=== PATIENT | female | born 1990 | race Caucasian/White ===

== ENCOUNTER 2024-05-24 09:29 | Emergency (ER) | payer MEDICAID, SELFPAY ==
--- NOTE | 2024-05-24 09:38 | ED_ITS ---
HPI - Overdose General Chief Complaint: General Medical Stated Complaint: ?ALLER RXN OR EXTRA ABX,NAUSEA,DIZZY,ARMS TINGLY Time Seen by Provider: 05/24/24 09:36 Source: patient, EMS and old records reviewed Mode of arrival: EMS Limitations: no limitations History of Present Illness ED Provider: TIARRA JONES Narrative: 33 yo female with PMH of ETOH use, pneumonia currently on vantin, depression here with c/o not feeling well and accidentally took an extra dose of her medications. She reports at 5am she took her usual 0.1 clonidine, trazodone 100mg, propanolol 40mg - she went to bed then think she got up again and took 1 more dose of each. She states she has no SI it was an error due to being tired. She feels dizzy when she stands. No other ingestion. She might have taken extra dose of vantin as well. complaint: accidental overdose Onset (ago): hour(s) (7am) Context: Accidental Overdose: medication error Associated symptoms: nausea/vomiting and tinnitus (dizzy) Treatments Prior to Arrival: IV fluids and other (zofran) Related Data Allergies Allergy/AdvReac Type Severity Reaction Status Date / Time amoxicillin Allergy Intermediate Rash Verified 05/24/24 09:55 nitrofurantoin Allergy Intermediate Rash Verified 05/24/24 09:55 [From Macrobid] Review of Systems 2 Review of Systems: Constitutional : No Fever, No Chills, No Fatigue ENT/Mouth : No sore throat, No Rhinorrhea Eyes: No Eye Pain, No Swelling, No Redness Cardiovascular : No Chest Pain, No SOB, No Dyspnea on Exertion Respiratory : No Cough, No Sputum Gastrointestinal : pos Nausea, No Vomiting, No Diarrhea, No abdominal Pain Genitourinary : No Dysuria, No Urinary Frequency, No Hematuria, Musculoskeletal : No joint pain, No Myalgias, No Joint Swelling Skin : No Skin Lesions, No rash Neuro : No Weakness, No Numbness, pos Dizziness, positive Headache All other systems reviewed and are negative [facility] Past Medical History Attestation statement: The following information was validated with the patient. Source: old records reviewed Medical History Anxiety Depression Social History Social History (Updated 05/24/24 @ 10:00 by Samantha Land DO) Alcohol intake: current Alcohol intake frequency: former alcohol drinker Alcohol type: beer and hard liquor Patient Tobacco Use Status: Tobacco use Unknown Advance Directives: No Advance Directives Information Provided: Yes Do you have a plan to hurt others: No Plan Physical Exam 2 Vital Signs: Vital Signs: Last Vital Signs Temp 98.6 F 05/24/24 09:52 Pulse 83 05/24/24 13:54 Resp 16 05/24/24 13:54 BP 143/106 H 05/24/24 13:54 Pulse Ox 94 05/24/24 13:54 O2 Del Method Room Air 05/24/24 13:54 O2 Flow Rate 2 05/24/24 11:16 BMI result Body Mass Index 17.4 Appearance: Alert. Oriented X3. No acute distress. Eyes: Pupils equal, round and reactive to light. no nystagmus ENT: Pharynx normal. Neck: Normal inspection. Neck supple. CVS: Normal heart rate and rhythm. Pulses normal. Respiratory: No respiratory distress. Breath sounds normal. Abdomen: Soft and nontender. Skin: Skin warm and dry. Normal skin color. Normal skin turgor. Extremities: No lower extremity edema. No calf ttp Neuro: Oriented X 3. No motor deficit. No sensory deficit. CN2-12 intact no clonus Medications Administered Discontinued Medications Generic Name Dose Route Start Last Admin Trade Name Fabianq PRN Reason Stop Dose Admin Diazepam 2.5 mg 05/24/24 10:49 05/24/24 11:17 Diazepam 10 Mg/2 Ml Cartridge IVPUSH 05/24/24 10:50 2.5 mg STAT STA Administration Famotidine 20 mg 05/24/24 10:49 05/24/24 11:17 Famotidine/Pf 20 Mg/2 Ml Vial IVPUSH 05/24/24 10:50 20 mg ONCE ONE Administration Lactated Ringer's 1,000 mls @ 999 mls/hr 05/24/24 09:51 05/24/24 10:40 Lr IV 05/24/24 10:51 999 mls/hr .Q1H1M ONE Administration Medical Decision Making Medical Decision Making [facility] Narrative: 33 yo female with PMH of ETOH use, pneumonia currently on vantin, depression here with c/o accidental overdose of her medications she denies SI/HI at this time will obtain labs, EKG, tele monitor for 4 to 5 hours, IVF and repeat reassessments. Hypoxia after valium, vital signs stable without hypotension or bradycardia. Tolerating PO. Non toxic appearing. Will obtain follow up EKG to monitor for stable qTC. Differential Diagnosis Differential Diagnoses: The differential diagnosis associated with the presentation includes accidental overdose Admission/Observation Consideration of admission/observation: Escalation of care including admission/observation considered physician observation started at 1126am pending observation for overdose observed for 5 hours at this time she does not meet inpatient level of care no signs of issue with overdose BP and HR stable 05/24/24 TIARRA 3pm Lab Data [facility] Lab Attestation statement: I reviewed the patient's lab results. 05/24/24 10:25 05/24/24 10:26 Labs: Lab Results 05/24/24 05/24/24 05/24/24 Range/Units 10: 10: 10:30 WBC 5.1 (4.8-10.8) X10*3/uL RBC 3.97 L (4.20-5.50) X10*6/uL Hgb 13.0 (12.0-16.0) g/dl Hct 39.7 (37.0-47.0) % MCV 100.0 H (80.0-98.0) fL MCH 32.7 (27.0-33.0) pg MCHC 32.7 (31.0-35.0) g/dl RDW 14.0 (11.0-16.0) % Plt Count 219 (160-400) X10*3/uL MPV 9.1 L (9.4-12.3) fL Immature Gran % (Auto) 1.0 H (0.0-0.4) % Neut % (Auto) 26.7 L (45-73) % Lymph % (Auto) 51.1 H (20-40) % Cobb % (Auto) 18.2 H (2-11) % Eos % (Auto) 2.0 (0-4) % Baso % (Auto) 1.0 (0-2) % Lymph # (Auto) 2.6 (1.2-4.9) X10*3/uL Cobb # (Auto) 0.9 (0.1-1.2) X10*3/uL Eos # (Auto) 0.1 (0.0-0.4) X10*3/uL Baso # (Auto) 0.1 (0.0-0.2) X10*3/uL Abs Immat Gran (auto) 0.05 H (0.00-0.03) X10*3/uL Absolute Neuts (auto) 1.4 L (2.0-8.3) x10*3/uL Absolute Nucleated RBC 0.000 (0.0-0.012) X10*3/uL Nucleated RBC % (auto) 0.0 (0.0-0.2) /100WBC VBG pH 7.29 L (7.32-7.43) VBG pCO2 56 mmHg VBG pO2 35 mmHg VBG HCO3 27 H (22-26) mmol/L VBG O2 Saturation 46.0 % VBG Base Excess 0.3 mmol/L Sodium 142 (135-145) mmol/L Potassium 3.6 (3.3-5.1) mmol/L Chloride 109 H (96-108) mmol/L Carbon Dioxide 26 (22-29) mmol/L Anion Gap 11 L (12-20) BUN 3 L (9-16) mg/dL Creatinine 0.55 (0.5-1.4) mg/dL Estim Creat Clear Calc 98.9 Estimated GFR > 60 Random Glucose 81 (60-115) mg/dL Calcium 8.1 L (8.4-10.2) mg/dL Magnesium 1.6 (1.6-2.6) mg/dL Total Bilirubin 0.1 (0.0-1.0) mg/dL Direct Bilirubin < 0.2 (0.0-0.5) mg/dL AST 37 H (5-31) U/L ALT 18 (0-31) U/L Alkaline Phosphatase 70 (39-117) U/L Total Protein 6.2 L (6.5-8.0) g/dL Albumin 3.3 L (3.5-5.0) g/dL Beta HCG, Quant < 2 mIU/mL Salicylates < 5.0 L (15-30) mg/dL Urine Opiates Screen (Not Detect) Ur Buprenorphine Scrn (Not Detect) ng/mL Ur Oxycodone Screen (Not Detect) ng/mL Urine Methadone Screen (Not Detect) ng/mL Urine Fentanyl Screen (Not Detect) Acetaminophen < 3 (<30) mcg/mL Ur Barbiturates Screen (Not Detect) Ur Phencyclidine Scrn (Not Detect) Ur Amphetamines Screen (Not Detect) U Benzodiazepines Scrn (Not Detect) Urine Cocaine Screen (Not Detect) U Marijuana (THC) Screen (Not Detect) Ethyl Alcohol 83 mg/dL 05/24/24 Range/Units 10:43 WBC (4.8-10.8) X10*3/uL RBC (4.20-5.50) X10*6/uL Hgb (12.0-16.0) g/dl Hct (37.0-47.0) % MCV (80.0-98.0) fL MCH (27.0-33.0) pg MCHC (31.0-35.0) g/dl RDW (11.0-16.0) % Plt Count (160-400) X10*3/uL MPV (9.4-12.3) fL Immature Gran % (Auto) (0.0-0.4) % Neut % (Auto) (45-73) % Lymph % (Auto) (20-40) % Cobb % (Auto) (2-11) % Eos % (Auto) (0-4) % Baso % (Auto) (0-2) % Lymph # (Auto) (1.2-4.9) X10*3/uL Cobb # (Auto) (0.1-1.2) X10*3/uL Eos # (Auto) (0.0-0.4) X10*3/uL Baso # (Auto) (0.0-0.2) X10*3/uL Abs Immat Gran (auto) (0.00-0.03) X10*3/uL Absolute Neuts (auto) (2.0-8.3) x10*3/uL Absolute Nucleated RBC (0.0-0.012) X10*3/uL Nucleated RBC % (auto) (0.0-0.2) /100WBC VBG pH (7.32-7.43) VBG pCO2 mmHg VBG pO2 mmHg VBG HCO3 (22-26) mmol/L VBG O2 Saturation % VBG Base Excess mmol/L Sodium (135-145) mmol/L Potassium (3.3-5.1) mmol/L Chloride (96-108) mmol/L Carbon Dioxide (22-29) mmol/L Anion Gap (12-20) BUN (9-16) mg/dL Creatinine (0.5-1.4) mg/dL Estim Creat Clear Calc Estimated GFR Random Glucose (60-115) mg/dL Calcium (8.4-10.2) mg/dL Magnesium (1.6-2.6) mg/dL Total Bilirubin (0.0-1.0) mg/dL Direct Bilirubin (0.0-0.5) mg/dL AST (5-31) U/L ALT (0-31) U/L Alkaline Phosphatase (39-117) U/L Total Protein (6.5-8.0) g/dL Albumin (3.5-5.0) g/dL Beta HCG, Quant mIU/mL Salicylates (15-30) mg/dL Urine Opiates Screen Not Detected (Not Detect) Ur Buprenorphine Scrn Not Detected (Not Detect) ng/mL Ur Oxycodone Screen Not Detected (Not Detect) ng/mL Urine Methadone Screen Not Detected (Not Detect) ng/mL Urine Fentanyl Screen Not Detected (Not Detect) Acetaminophen (<30) mcg/mL Ur Barbiturates Screen Not Detected (Not Detect) Ur Phencyclidine Scrn Not Detected (Not Detect) Ur Amphetamines Screen Not Detected (Not Detect) U Benzodiazepines Scrn Not Detected (Not Detect) Urine Cocaine Screen Not Detected (Not Detect) U Marijuana (THC) Screen POSITIVE H (Not Detect) Ethyl Alcohol mg/dL Independent Interpretation I performed an independent interpretation of an: EKG Interpretation: Rate: 74 Rhythm:NSR Beyer: normal Normal P waves. Normal NANY. Normal QRS complex. ST T wave : inverted t wave V1, no JHONATAN qTC: 439 prior studies: no acute ischemia The study has been interpreted contemporaneously by me. EKG #2 Rate: 79 Rhythm: NSR Beyer: normal Normal P waves. Normal NANY. Normal QRS complex. ST T wave : inverted V1, no JHONATAN qTC: 435 prior studies: no acute ischemia The study has been interpreted contemporaneously by me. . Independent Historian Clinical information obtained from an independent historian. History obtained from or confirmed by: EMS External Record Review External record reviewed: Outpatient record Discharge Plan Discharge Clinical Impression: Overdose Qualifiers: Encounter type: initial encounter Injury intent: accidental or unintentional Q ualified Code(s): T50.901A - Poisoning by unspecified drugs, medicaments and biological substances, accidental (unintentional), initial encounter Patient Disposition: Home, Self-Care Instructions: Adult Overdose (ED) Additional Instructions: do not take your medications tonight including trazodone and clonidine return for worsening symptoms dizziness, low blood pressure top number below 90, fainting, HR below 60 or any other concerns rest and stay hydrated hold your next dose of antibiotic can resume all medications normal tomorrow Print Language: Mauritanian
[2024-05-24 09:39] VITALS: BP 133/86; PULSE 118; O2SAT 99
[2024-05-24 09:52] VITALS: BP 149/99; PULSE 95; RESP 12; TEMP 37; O2SAT 94; BMI 17.4
--- NOTE | 2024-05-24 09:52 | ECG_ITS ---
Test Reason : OVERDOSE Blood Pressure : */* mmHG Vent. Rate : 74 BPM Atrial Rate : 74 BPM P-R Int : 108 ms QRS Dur : 68 ms QT Int : 396 ms P-R-T Axes : 53 79 63 degrees QTcB Int : 439 ms Sinus rhythm with short AR Otherwise normal ECG No previous ECGs available Referred By: Samantha Land Electronically Signed By: DORI STEPHENS MD
[2024-05-24 10:29] LABS: MANUAL DIFF FLAG NO
[2024-05-24 10:35] LABS: VBG Base Excess 0.3 mmol/L; VBG HCO3 27 mmol/L (22-26); VBG pCO2 56 mmHg; VBG pH 7.29 (7.32-7.43); VBG pO2 35 mmHg
[2024-05-24 10:37] LABS: Venous Blood Gas Refer to POC result
[2024-05-24] MEDS: Lactated Ringers 1,000 ML 999 ML IV (10:40)
[2024-05-24 10:45] LABS: Ethanol 83 mg/dL
[2024-05-24 10:45] LABS: Basophils Absolute Auto 0.1 X10*3/uL (0.0-0.2); Eosinophils Absolute Auto 0.1 X10*3/uL (0.0-0.4); Hematocrit 39.7 % (37.0-47.0); Imm Gran Abs Auto 0.05 X10*3/uL (0.00-0.03); Lymphocytes Absolute Auto 2.6 X10*3/uL (1.2-4.9); Lymphocytes Percent Auto 51.1 % (20-40); Mean Corpuscular HGB Conc 32.7 g/dl (31.0-35.0); Mean Corpuscular Hemoglobin 32.7 pg (27.0-33.0); Mean Platelet Volume 9.1 fL (9.4-12.3); Monocytes Absolute Auto 0.9 X10*3/uL (0.1-1.2); Monocytes Percent Auto 18.2 % (2-11); Neutrophils Absolute Auto 1.4 x10*3/uL (2.0-8.3); Neutrophils Percent Auto 26.7 % (45-73); Platelet Count 219 X10*3/uL (160-400); Red Blood Count 3.97 X10*6/uL (4.20-5.50); White Blood Count 5.1 X10*3/uL (4.8-10.8)
[2024-05-24 10:46] LABS: Acetaminophen LAB < 3 mcg/mL (<30); Salicylate < 5.0 mg/dL (15-30)
[2024-05-24 10:53] LABS: Alanine Aminotransferase 18 U/L (0-31); Albumin Level 3.3 g/dL (3.5-5.0); Alkaline Phosphatase 70 U/L (39-117); Anion Gap 11 (12-20); Aspartate Amino Transferase 37 U/L (5-31); Bilirubin Direct < 0.2 mg/dL (0.0-0.5); Bilirubin Total 0.1 mg/dL (0.0-1.0); Blood Urea Nitrogen 3 mg/dL (9-16); Calcium 8.1 mg/dL (8.4-10.2); Carbon Dioxide 26 mmol/L (22-29); Chloride 109 mmol/L (96-108); Creatinine Clr Calc Pharmacy 98.9; Estimated Glomerular Filt Rate > 60; Glucose Random 81 mg/dL (60-115); Magnesium 1.6 mg/dL (1.6-2.6); Potassium 3.6 mmol/L (3.3-5.1); Sodium 142 mmol/L (135-145); Total Protein 6.2 g/dL (6.5-8.0)
[2024-05-24 10:57] LABS: HCG Quantitative < 2 mIU/mL
[2024-05-24 11:15] VITALS: BP 134/99; PULSE 80; RESP 16; O2SAT 87
[2024-05-24 11:16] VITALS: O2SAT 95
[2024-05-24] MEDS: diazePAM 10 MG/2 ML CARTRIDGE 2.5 MG IVPUSH (11:17)
[2024-05-24] MEDS: Famotidine/PF 20 MG/2 ML VIAL IVPUSH (11:17)
[2024-05-24 11:21] LABS: Amphetamine Screen Urine Not Detected (Not Detect); Barbiturates, Urine Not Detected (Not Detect); Benzodiazepines Screen Urine Not Detected (Not Detect); Buprenorphine Scr Not Detected (Not Detect); Cannabinoid Screen Urine POSITIVE (Not Detect); Cocaine Screen Urine Not Detected (Not Detect); Fentanyl, urine Not Detected (Not Detect); Methadone Screen, Urine Not Detected (Not Detect); Opiate Screen Urine Not Detected (Not Detect); Oxycodone Screen Urine Not Detected (Not Detect); Phencyclidine Screen Urine Not Detected (Not Detect)
[2024-05-24 13:54] VITALS: BP 143/106; PULSE 83; RESP 16; O2SAT 94
--- NOTE | 2024-05-24 14:00 | ECG_ITS ---
Test Reason : OVERDOSE Blood Pressure : */* mmHG Vent. Rate : 79 BPM Atrial Rate : 79 BPM P-R Int : 100 ms QRS Dur : 72 ms QT Int : 380 ms P-R-T Axes : 56 78 57 degrees QTcB Int : 435 ms Sinus rhythm with sinus arrhythmia with short IA Otherwise normal ECG When compared with ECG of 24-May-2024 10:09, No significant change was found Referred By: Samantha Land Electronically Signed By: DORI STEPHENS MD
[2024-05-24 15:12] VITALS: BP 148/103; PULSE 88; RESP 16; TEMP 37.1; O2SAT 97
== END 2024-05-24 15:20 | disposition home or self-care (01) ==
PROVIDERS: Emergency Provider Emergency Medicine; PCP Internal Medicine
DX: T46.5X1A Poisoning by other antihypertensive drugs, accidental (unintentional), initial encounter (principal); T43.211A Poisoning by selective serotonin and norepinephrine reuptake inhibitors, accidental (unintentional), initial encounter; T51.3X1A Toxic effect of fusel oil, accidental (unintentional), initial encounter; R42 Dizziness and giddiness; Y92.003 Bedroom of unspecified non-institutional (private) residence as the place of occurrence of the external cause
CPT/HCPCS: 36415; 80048; 80076; 80143; 80179; 80307; 82803; 83735; 84702; 85025; 93005; 96374; 96375; 99284; J3360; J7120

== ENCOUNTER → 2024-05-24 09:52 | Outpatient (BNV) | payer MEDICAID, SELFPAY | PROVIDERS: Emergency Provider Emergency Medicine; PCP Internal Medicine; Visit Provider Internal Medicine Cardiovascular Disease | DX: T50.901A Poisoning by unspecified drugs, medicaments and biological substances, accidental (unintentional), initial encounter (principal) | CPT/HCPCS: 93010 ==

== ENCOUNTER 2024-09-15 00:41 | Inpatient (IN) | payer MEDICAID, SELFPAY ==
[2024-09-15] VITALS (10 sets, daily range): BP systolic 110–154; BP diastolic 72–117; PULSE 87–126; RESP 12–26; TEMP 36.7–37.2; O2SAT 90–97; BMI 18.2
--- NOTE | 2024-09-15 | ECG_ITS ---
Test Reason : TACHY, ALCOHOL WITHDRAWL Blood Pressure : */* mmHG Vent. Rate : 115 BPM Atrial Rate : 115 BPM P-R Int : 128 ms QRS Dur : 76 ms QT Int : 340 ms P-R-T Axes : 81 85 54 degrees QTcB Int : 470 ms Sinus tachycardia Otherwise normal ECG When compared with ECG of 24-May-2024 14:25, T wave amplitude has decreased in Lateral leads Referred By: Generic ED Physician Electronically Signed By: RAMON RYDER
--- NOTE | ~2024-09-15 | CT_ITS ---
CLINICAL HISTORY: Diffuse Abd Pain Tenderness; N V CT abdomen and pelvis with contrast Comparison: None provided Findings: The lung bases are clear. The appearance of the liver suggests fatty infiltration. Otherwise unremarkable gallbladder and solid organs. No urolithiasis. No bowel obstruction, pneumoperitoneum, or pneumatosis. Pelvic contents unremarkable. Normal appendix. The bones are intact. IMPRESSION: Hepatic steatosis. This document has been electronically signed by: Lazarus Hall MD on 09/15/2024 06:44:32
--- NOTE | ~2024-09-15 | CT_ITS ---
CLINICAL HISTORY: Fall; Head Strike; ? Seizure CT head without contrast Comparison: None provided Findings: No intra-axial mass, midline shift, hydrocephalus, or acute hemorrhage. No significant atrophy-like change or white matter disease. There is no sinus or mastoid fluid. The orbits are within normal limits. There is no acute fracture. IMPRESSION: 1. No acute intracranial findings. This document has been electronically signed by: Thor Wells MD on 09/15/2024 04:55:45
--- OUTSIDE RECORDS SUMMARY | 2024-09-15 01:16 | XMS_ITS ---
Author Name [facility] Organization Unknown Encounters Encounter Type Encounter Reason Primary Diagnosis Location Date Ambulatory [facility] 08/17/2024 Care Team Organization Name Specialty Phone Email Start Date End [facility] 08/17
[2024-09-15 01:33] LABS: MANUAL DIFF FLAG NO
[2024-09-15 01:36] LABS: Hematocrit 45.7 % (37.0-47.0); Hemoglobin 16.7 g/dl (12.0-16.0); Imm Gran Abs Auto 0.01 X10*3/uL (0.00-0.03); Imm Gran Pct Auto 0.2 % (0.0-0.4); Lymphocytes Absolute Auto 1.9 X10*3/uL (1.2-4.9); Mean Corpuscular HGB Conc 36.5 g/dl (31.0-35.0); Mean Corpuscular Hemoglobin 34.2 pg (27.0-33.0); Mean Corpuscular Volume 93.6 fL (80.0-98.0); NRBC Abs Auto 0.000 X10*3/uL (0.0-0.012); NRBC Pct Auto 0.0 /100WBC (0.0-0.2); Platelet Count 137 X10*3/uL (160-400); Red Blood Count 4.88 X10*6/uL (4.20-5.50); White Blood Count 4.7 X10*3/uL (4.8-10.8)
--- NOTE | 2024-09-15 01:53 | ED_ITS ---
HPI - General Adult General Chief complaint: General Medical Stated complaint: ABD Pain Time Seen by Provider: 09/15/24 01:52 Source: patient and EMS Mode of arrival: EMS Limitations: no limitations History of Present Illness ED Provider: Hipolito VAIL HPI narrative: The patient is a 34-year-old female with a history of depression, anxiety, alcohol dependency, tobacco dependency, and marijuana use, self reporting a history of cirrhosis, presenting to the ED for evaluation of multiple complaints. Patient reports she has a history of previous withdrawal seizures, denies history of epilepsy or taking antiepileptics. Patient reports she has been experiencing generalized abdominal pain for the past 5 days, has been able to tolerate any p.o. solids but has been able to tolerate water and roughly 12 40 oz beers daily. The patient reports tonight she woke up on the ground, patient lives with her parents but parents were not home at the time of her presumed syncopal episode. The patient states she believes she likely had a grand mal seizure as a result of withdrawal, states she did not drank any alcohol since 08:00 on 09/14. The patient denies associated nausea with dry heaving, as well as chronic cough productive of white foamy sputum, denies hemoptysis or hematemesis. The patient reports she has been having difficulty urinating due to poor fluid intake, reports history of multiple previous UTIs. Patient reports she has also been experiencing diarrhea but denies hematochezia or melena. The patient reports associated headache, denies focal neurological deficit. The patient reports she has been compliant with her psychiatric medications. The patient admits to alcohol and marijuana use today, denies use of other recreational drugs. Related Data Allergies Allergy/AdvReac Type Severity Reaction Status Date / Time amoxicillin Allergy Intermediate Rash Verified 09/15/24 01:01 nitrofurantoin (From Allergy Intermediate Rash Verified 09/15/24 01:01 Macrobid) Review of Systems 2 Review of Systems: Yes all other systems are reviewed and are negative PMFSH Past Medical History Medical History Anxiety Depression Social History Social History (Updated 05/24/24 @ 10:00 by Samantha Land DO) Alcohol intake: current Alcohol intake frequency: 3 or more drinks per day Alcohol type: beer Patient Tobacco Use Status: Tobacco use Unknown Smoked in Last 30 Days: Yes Use of substances other than those prescribed or required for medical reasons: Yes Substance Use Type: Marijuana Substance Use Frequency: Daily Last Used Substance: Hours (ago) Advance Directives: Yes Advance Directives Information Provided: Yes Advance Directives on File: No Patient : No Physical Exam ED Vital Signs: Vital Signs - 24 hr 09/15/24 00:54 09/15/24 02:00 09/15/24 04:23 Temperature 98.0 F 98.0 F Pulse Rate 122 H 123 H 123 H Respiratory Rate 22 H 26 H 18 Blood Pressure 143/116 H 145/110 H 148/117 H Pulse Oximetry 93 95 94 Oxygen Delivery Method Room Air Room Air Room Air 09/15/24 06:00 09/15/24 08:00 Temperature 98.0 F 99.0 F Pulse Rate 103 H 96 Respiratory Rate 19 12 Blood Pressure 154/107 H 124/85 Pulse Oximetry 96 95 Oxygen Delivery Method Room Air Room Air BMI result Body Mass Index 18.2 CONSTITUTIONAL: The patient appears uncomfortable, dry heaving, but otherwise non-toxic, well nourished and in no acute distress. Vital signs as documented. HEAD: Atraumatic, normocephalic. EYES: EOMs grossly intact, pupils equal, conjunctiva clear, no exudate. ENT: Nares patent, no discharge. Airway patent, no audible stridor, visible mucosa is pink and moist without noted lesions. NECK: Trachea is midline, no obvious masses or gross abnormalities. CHEST: Symmetric movement, normal appearance. LUNGS: LS present and CTAB, no w/r/r. Non-labored work of breathing. CARDIAC: Regular Rhythm, S1/S2 appreciated, no murmurs, rubs or gallops. ABDOMEN: Abdomen soft x4 quadrants, marked tenderness throughout, voluntary guarding, negative rebound, no palpable masses or organomegaly. Patient reports positive CVAT bilaterally. : Deferred. EXTREMITIES: Normal tone, moves all extremities spontaneously without reported pain. No obvious acute injury or deformity noted. NEURO: Alert and oriented x3, CN II-XII appear grossly intact. Cerebellar Functioning grossly intact. No obvious sensory or motor deficits. Speech clear and appropriate. PSYCH: Animated affect, but otherwise with appropriate eye contact, fluid speech, with appropriate response to questioning. No reported suicidality or homicidality. SKIN: Warm, dry, color appropriate, normal turgor. No rashes noted. Course Course Course Narrative: Channing Lo MD, 09/15/24 09:57 hours I assumed care of this patient from my colleague, Dr. Leonor Vega at 07:00 hours. 34-year-old female with a history of depression, anxiety, alcohol dependency, DTs, alcohol withdrawal seizures tobacco dependency, and marijuana use, self reporting a history of cirrhosis, presenting to the ED for evaluation of nausea, abdominal pain and feeling is she was withdrawing from alcohol. Patient states she is having diffuse abdominal pain that radiates to her back, pain is greater than 10/10. She states she has had intractable nausea and vomiting since onset of the pain and since being here in the emergency department. My interpretation patient's laboratory evaluation is as follows: Low platelet count 137,000. Elevated AST and ALT 124 and 50. Elevated alcohol level of 427. Lipase was normal at 27. CT scan of the abdomen pelvis did not reveal any acute finding to explain her pain Exam revealed that she was dry heaving, she appeared to be in distress secondary to her abdominal pain. Patient had diffuse moderate to severe tenderness with voluntary guarding but no rebound. Medical decision making: Patient has been treated with Toradol 30 mg IV, Zofran 4 mg IV x2, diazepam 2.5 mg IV and the phenobarbital protocol and normal saline IV x2 L.Despite this treatment she still has dry heaves and vomiting. CT scan did not reveal any clear cause for her pain she does have hepatic steatosis. My impression is that the patient has a acute alcoholic gastritis. I ordered Protonix 40 mg IV, Reglan 10 mg IV, Benadryl 50 mg IV, morphine 4 mg IV. Patient was also ordered to get D5 NS at 125 mL per hours. At this time I do not think the patient can be discharged home and I will discuss admission with the covering hospitalist. 10:27 I did discuss the patient's presentation with the covering hospitalist, physician scheduling assistant Yari Pantoja and the patient will be admitted for further treatment. Medications Administered Discontinued Medications Generic Name Dose Route Start Last Admin Trade Name Freq PRN Reason Stop Dose Admin Acetaminophen 975 mg 09/15/24 01:53 09/15/24 03:06 Acetaminophen 325 Mg Tablet PO 09/15/24 01:54 Not Given ONCE ONE Diazepam 2.5 mg 09/15/24 05:52 09/15/24 06:00 Diazepam 10 Mg/2 Ml Cartridge IVPUSH 09/15/24 05:53 2.5 mg STAT STA Administration Diphenhydramine HCl 50 mg 09/15/24 09:55 09/15/24 10:05 Diphenhydramine Hcl 50 Mg/Ml Vial IVPUSH 09/15/24 09:56 50 mg ONCE STA Administration Sodium Chloride 1,000 mls @ 999 mls/hr 09/15/24 02:00 09/15/24 04:30 Ns IV 09/15/24 03:00 Infused .Q1H1M RADHA Infusion Sodium Chloride 1,000 mls @ 999 mls/hr 09/15/24 04:15 09/15/24 06:05 Ns IV 09/15/24 05:15 Infused .Q1H1M RADHA Infusion Lactated Ringer's 1,000 mls @ 999 mls/hr 09/15/24 04:15 09/15/24 08:41 Lr IV 09/15/24 05:15 Infused .Q1H1M RADHA Infusion Iohexol 85 ml 09/15/24 04:52 09/15/24 04:52 Iohexol 350 Mg/Ml 100 Ml Infus..Btl IV 09/15/24 04:53 85 ml ONCE ONE Administration Ketorolac Tromethamine 30 mg 09/15/24 05:46 09/15/24 05:51 Ketorolac Tromethamine 30 Mg/Ml Vial IVPUSH 09/15/24 05:47 30 mg ONCE ONE Administration Metoclopramide HCl 10 mg 09/15/24 09:55 09/15/24 10:06 Metoclopramide Hcl 10 Mg/2 Ml Vial IVPUSH 09/15/24 09:56 10 mg ONCE STA Administration Morphine Sulfate 4 mg 09/15/24 09:55 09/15/24 10:05 Morphine Sulfate 4 Mg/Ml Cartridge IVPUSH 09/15/24 09:56 4 mg ONCE STA Administration Protocol Ondansetron HCl 4 mg 09/15/24 01:53 09/15/24 02:28 Ondansetron Hcl 4 Mg/2 Ml Vial IVPUSH 09/15/24 01:54 4 mg ONCE ONE Administration Ondansetron HCl 4 mg 09/15/24 03:54 09/15/24 04:31 Ondansetron Hcl 4 Mg/2 Ml Vial IVPUSH 09/15/24 03:55 4 mg ONCE ONE Administration Pantoprazole Sodium 40 mg 09/15/24 09:55 09/15/24 10:05 Pantoprazole Sodium 40 Mg/10 Ml Vial IVPUSH 09/15/24 09:56 40 mg ONCE ONE Administration Phenobarbital Sodium 195 mg 09/15/24 03:45 09/15/24 04:31 Phenobarbital Sodium 130 Mg/Ml Im Once IM 09/15/24 03:46 195 mg ONCE ONE Administration Phenobarbital Sodium 169 mg 09/15/24 07:00 09/15/24 07:38 Phenobarbital Sodium 130 Mg/Ml Vial Im Q3hx2 IM 09/15/24 10:01 169 mg Q3H RADHA Administration Medical Decision Making Medical Decision Making MDM Narrative: 4:08 AM 09/15/2024 (Damaris VAIL): Patient is a 34-year-old female with a history of chronic alcohol and marijuana use presenting to the ED for evaluation of question alcohol withdrawal seizure as she reports she has not been drinking alcohol since 08:00 yesterday (09/14). The patient arrives to the ED complaining of diffuse abdominal pain for the past 5 days, however also reports a history of chronic abdominal pain since age 2. The patient reports she has been drinking alcohol since age 12. Upon initial presentation in the ED the Patient's CIWA score was 36, phenobarbital was initiated, and patient was treated with Zofran and sent for a CT of the head, interpretation is still pending. Patient was also treated with Tylenol for headache but declined due to her reported history of cirrhosis. Patient's exam reveals active dry heaving, abdomen is tender throughout, no other acute findings. The patient's laboratory evaluation shows no leukocytosis, anemia, electrolyte abnormality, or GLENIS. Patient does have a anion gap of 26 and elevated ALT and AST of 50 and 124 respectively. The patient's ethanol level returned at 427, alcohol withdrawal seizure highly unlikely to be the source of the patient's syncopal episode. The patient has now received phenobarbital and multiple rounds of Zofran, we will also treat with IV fluid hydration, and we will obtain CT abdomen and pelvis due to the patient's reported diffuse abdominal tenderness. We will add on urinalysis given patient's report of frequent UTIs. If patient has no resolution of symptoms following IV fluid hydration and additional dose of Zofran we will consider droperidol for question of cannabis hyperemesis. Patient's care will be signed out to Dr. Vega to follow up imaging and response to interventions. Admission/Observation Consideration of admission/observation: Escalation of care including admission/observation considered Lab Data MDM Lab Attestation statement: I reviewed the patient's lab results. 09/15/24 01:09/15/24 01:29 Labs: Lab Results 09/15/24 09/15/24 09/15/24 Range/Units 01:29 04:46 09:45 WBC 4.7 L (4.8-10.8) X10*3/uL RBC 4.88 D (4.20-5.50) X10*6/uL Hgb 16.7 H D (12.0-16.0) g/dl Hct 45.7 (37.0-47.0) % MCV 93.6 (80.0-98.0) fL MCH 34.2 H (27.0-33.0) pg MCHC 36.5 H (31.0-35.0) g/dl RDW 13.8 (11.0-16.0) % Plt Count 137 L D (160-400) X10*3/uL MPV 10.2 (9.4-12.3) fL Immature Gran % (Auto) 0.2 (0.0-0.4) % Neut % (Auto) 42.8 L (45-73) % Lymph % (Auto) 39.9 (20-40) % [place] % (Auto) 16.0 H (2-11) % Eos % (Auto) 0.2 (0-4) % Baso % (Auto) 0.9 (0-2) % Lymph # (Auto) 1.9 (1.2-4.9) X10*3/uL [place] # (Auto) 0.8 (0.1-1.2) X10*3/uL Eos # (Auto) 0.0 (0.0-0.4) X10*3/uL Baso # (Auto) 0.0 (0.0-0.2) X10*3/uL Abs Immat Gran (auto) 0.01 (0.00-0.03) X10*3/uL Absolute Neuts (auto) 2.0 (2.0-8.3) x10*3/uL Absolute Nucleated RBC 0.000 (0.0-0.012) X10*3/uL Nucleated RBC % (auto) 0.0 (0.0-0.2) /100WBC VBG pH 7.41 (7.32-7.43) VBG pCO2 41 mmHg VBG pO2 54 mmHg VBG HCO3 26 (22-26) mmol/L VBG O2 Saturation 77.0 % VBG Base Excess 1.5 mmol/L Sodium 139 (135-145) mmol/L Potassium 4.5 D (3.3-5.1) mmol/L Chloride 95 L (96-108) mmol/L Carbon Dioxide 23 (22-29) mmol/L Anion Gap 26 H (12-20) BUN 3 L (9-16) mg/dL Creatinine 0.62 (0.5-1.4) mg/dL Estim Creat Clear Calc 91.0 Estimated GFR > 60 Random Glucose 107 (60-115) mg/dL Calcium 9.3 D (8.4-10.2) mg/dL Magnesium 2.0 (1.6-2.6) mg/dL Total Bilirubin 0.3 (0.0-1.0) mg/dL AST 124 H (5-31) U/L ALT 50 H (0-31) U/L Alkaline Phosphatase 101 (39-117) U/L Total Protein 8.4 H (6.5-8.0) g/dL Albumin 4.7 (3.5-5.0) g/dL Lipase 27 (8-78) U/L Beta HCG, Quant < 2 mIU/mL Urine Color Dark Yellow Urine Appearance Clear Urine pH 5.5 (5.0-9.0) Ur Specific [place] >= 1.030 H (1.005-1.025) Urine Protein Negative (Neg-Trace) mg/dL Urine Glucose (UA) Negative (Negative) mg/dL Urine Ketones Negative (Negative) mg/dL Urine Blood Negative (Negative) Urine Nitrite Positive H (Negative) Ur Leukocyte Esterase Negative (Negative) Urine RBC 0-2 (0-2) /HPF Urine WBC 0-5 (0-5) /HPF Ur Squamous Epith Cells 0-2 (0-2) /HPF Urine Bacteria None Seen (None Seen) Hyaline Casts 0-2 (0-2) /LPF Ethyl Alcohol 427 H* mg/dL Critical Care Time Critical Care Time Critical Care Time: Yes Total Critical Care Time: 35 Attestation: Critical Care: The patient was critically ill with a high probability of imminent or life threatening deterioration. I spent greater than 30 minutes of discontinuous time evaluating the patient,delivering critical care at the bedside, discussing and evaluating pertinent data with consultants. Critical care time does not include time spent performing separately billable procedures or teaching. Total time spent performing critical care was 35 minutes. Discharge Plan Discharge Patient Disposition: Admitted As Inpatient Print Language: Ukrainian
[2024-09-15 01:57] LABS: Alanine Aminotransferase 50 U/L (0-31); Albumin Level 4.7 g/dL (3.5-5.0); Alkaline Phosphatase 101 U/L (39-117); Anion Gap 26 (12-20); Aspartate Amino Transferase 124 U/L (5-31); Blood Urea Nitrogen 3 mg/dL (9-16); Calcium 9.3 mg/dL (8.4-10.2); Carbon Dioxide 23 mmol/L (22-29); Chloride 95 mmol/L (96-108); Creatinine Clr Calc Pharmacy 91.0; Estimated Glomerular Filt Rate > 60; Lipase 27 U/L (8-78); Magnesium 2.0 mg/dL (1.6-2.6); Potassium 4.5 mmol/L (3.3-5.1); Sodium 139 mmol/L (135-145); Total Protein 8.4 g/dL (6.5-8.0)
[2024-09-15] MEDS: PHENobarbitaL sodium 130 MG/ML IM ONCE 195 MG IM (04:31)
[2024-09-15 04:46] LABS: Venous Blood Gas Refer to POC result
[2024-09-15 04:52] LABS: VBG HCO3 26 mmol/L (22-26); VBG O2 % Saturation 77.0 %
[2024-09-15] MEDS: iohexoL 350 MG/ML 100 ML INFUS..BTL 85 ML IV (04:52)
[2024-09-15] MEDS: diazePAM 10 MG/2 ML CARTRIDGE 2.5 MG IVPUSH (06:00)
[2024-09-15] MEDS: Lactated Ringers 1,000 ML 999 ML IV (06:05)
[2024-09-15] MEDS: PHENobarbitaL sodium 130 MG/ML VIAL IM Q3Hx2 169 MG IM ×2 (07:38→10:59)
[2024-09-15 09:52] LABS: Appearance Urine Clear; Glucose Urine UA Negative (Negative); PH 5.5 (5.0-9.0); Specific Gravity - Urine >= 1.030 (1.005-1.025); UMIC TRIGGER UACC YES
--- NOTE | 2024-09-15 09:52 | PC.NURSE ---
pt very uncomfortable, nauseous, dry heaving but nothing comes up. she is shaky and reports severe abd pain. she is on phenobarb protocol. CIWA 16. Dr. johnson notified who went into see pt.
[2024-09-15 10:07] LABS: UACC Culture Trigger YES
--- NOTE | 2024-09-15 10:34 | P.HPHOSP_ITS ---
History of Present Illness Date of Service: 09/15/24 Attending physician on admission: Flako Kraus Chief Complaint: abdominal pain, N/V This is a 34-year-old female with a history of alcohol dependence who presents to the emergency department with complaints of abdominal pain, nausea, vomiting and concerns over alcohol withdrawal. On arrival to the emergency department her alcohol level was 427. Lab work showing platelet level 137, mild transaminitis. Patient reports generalized abdominal pain with associated nausea and vomiting. She denies diarrhea. She reports decreased oral intake over the past week. She has been drinking 12 ?tall boys? of beer daily she denies any hard alcohol use. CT scan of the abdomen and pelvis was unremarkable with the exception of hepatic steatosis. Lipase normal. She was started on phenobarbital protocol, received multiple doses of antiemetics but continued to report pain and nausea and vomiting and therefore will be admitted for further management. Review of Systems 2 Review of Systems: Yes all other systems are reviewed and are negative Constitutional: Constitutional: Denies chills and Denies fever(s) Cardiovascular: Cardiovascular: Denies chest pain, Denies palpitations and Denies dyspnea Respiratory: Respiratory: Denies cough and Denies dyspnea Gastrointestinal: Gastrointestinal: Reports abdominal pain, Denies diarrhea, Reports nausea and Reports vomiting Endocrine: Endocrine: Denies palpitations PMFSH Medical History Anxiety Depression Social History (Updated 05/24/24 @ 10:00 by Samantha Land DO) Alcohol intake: current Alcohol intake frequency: 3 or more drinks per day Alcohol type: beer Patient Tobacco Use Status: Tobacco use Unknown Smoked in Last 30 Days: Yes Use of substances other than those prescribed or required for medical reasons: Yes Substance Use Type: Marijuana Substance Use Frequency: Daily Last Used Substance: Hours (ago) Advance Directives: Yes Advance Directives Information Provided: Yes Advance Directives on File: No Patient : No Meds Allergies Allergy/AdvReac Type Severity Reaction Status Date / Time amoxicillin Allergy Intermediate Rash Verified 09/15/24 01:01 nitrofurantoin (From Allergy Intermediate Rash Verified 09/15/24 01:01 Macrobid) Active Medications: Current Medications Dextrose/Sodium Chloride (D5ns) 1,000 mls @ 125 mls/hr IVCONT .Q8H RADHA Last Admin: 09/15/24 10:31 Dose: 125 mls/hr Pharmacy Consult (Consult Rx Etoh Phenob Im/Po) 1 each MISCELLANE ONCE PRN; Protocol PRN Reason: Consult order Phenobarbital (Phenobarbital 30 Mg Tablet) 30 mg PO BID [facility]; Protocol Stop: 09/17/24 09:01 Phenobarbital (Phenobarbital 15 Mg Tablet) 15 mg PO BID RADHA; Protocol Stop: 09/19/24 09:01 Phenobarbital (Phenobarbital 15 Mg Tablet) 15 mg PO DAILY [facility]; Protocol Stop: 09/21/24 09:01 Home Medications ?Medication ?Instructions ?Recorded ?Confirmed ?Last Taken ?Type albuterol sulfate 90 mcg/actuation 2 puff inhalation Q 4H PRN wheezing 09/15/24 09/15/24 09/13/24 History aerosol inhaler (Ventolin HFA) clonidine HCl 0.1 mg tablet 0.1 mg PO TID 09/15/2410/0209/13/24 History fluticasone propionate 115 2 puff inhalation BID 09/1509/15/24 09/13/24 History mcg-salmeterol 21 mcg/actuation HFA inhaler (Advair HFA) hydroxyzine pamoate 25 mg capsule 50 mg PO TID PRN anx iety 09/15/24 09/15/24 Unknown History omeprazole 20 mg capsule,delayed 20 mg PO DAILY@0630 0 09/15/24 09/15/24 09/13/24 History release propranolol 80 mg capsule,24 80 mg PO DAILY 09/15/24 0 09/15/24 09/13/24 History hr,extended release trazodone 50 mg tablet 50 mg PO BEDTIME PRN Sleep 0 09/15/24 09/15/24 09/13/24 History Physical Exam 2 Vital Signs and Narrative: Vital Signs: Last Vital Signs Temp 99.0 F 09/15/24 08:00 Pulse 96 09/15/24 08:00 Resp 12 09/15/24 08:00 BP 124/85 09/15/24 08:00 Pulse Ox 95 09/15/24 08:00 O2 Del Method Room Air 09/15/24 08:00 BMI result Body Mass Index 18.2 Const: General: alert and awake Nutritional Appearance: average body habitus Orientation/consciousness: patient oriented x3 Resp: Effort & Inspection: normal respiratory effort, able to speak in complete sentences, no respiratory distress and no use of accessory muscles A uscultation: clear to auscultation bilaterally Cardio: Rate: regular rate GI: Other: reports generalized tenderness to palpation; no guarding, no rebound Inspection: No distended Palpation (GI): Soft to palpation Neuro: General: patient oriented x3, moves all extremities and CN's II-XI intact bilaterally Extrem: General: No pedal edema Results Labs 09/15/24 10:36 09/15/24 10:36 Labs: Laboratory Results - last 24 hr 09/15/24 09/15/24 09/15/24 01:29 04:46 09:45 MCV 93.6 MCH 34.2 H MCHC 36.5 H RDW 13.8 Plt Count 137 L D MPV 10.2 Immature Gran % (Auto) 0.2 Neut % (Auto) 42.8 L Lymph % (Auto) 39.9 [place] % (Auto) 16.0 H Eos % (Auto) 0.2 Baso % (Auto) 0.9 Lymph # (Auto) 1.9 [place] # (Auto) 0.8 Eos # (Auto) 0.0 Baso # (Auto) 0.0 Abs Immat Gran (auto) 0.01 Absolute Neuts (auto) 2.0 Absolute Nucleated RBC 0.000 Nucleated RBC % (auto) 0.0 VBG pH 7.41 VBG pCO2 41 VBG pO2 54 VBG HCO3 26 VBG O2 Saturation 77.0 VBG Base Excess 1.5 Anion Gap 26 H Estim Creat Clear Calc 91.0 Estimated GFR > 60 Random Glucose 107 Calcium 9.3 D Magnesium 2.0 Total Bilirubin 0.3 AST 124 H ALT 50 H Alkaline Phosphatase 101 Total Protein 8.4 H Albumin 4.7 Lipase 27 Beta HCG, Quant < 2 Urine Color Dark Yellow Urine Appearance Clear Urine pH 5.5 Ur Specific [place] >= 1.030 H Urine Protein Negative Urine Glucose (UA) Negative Urine Ketones Negative Urine Blood Negative Urine Nitrite Positive H Ur Leukocyte Esterase Negative Urine RBC 0-2 Urine WBC 0-5 Ur Squamous Epith Cells 0-2 Urine Bacteria None Seen Hyaline Casts 0-2 Ethyl Alcohol 427 H* Assessment and Plan (1) Alcohol withdrawal: Qualifiers: Complication of substance-induced condition: uncomplicated Qualified Code(s): F10.930 - Alcohol use, unspecified with withdrawal, uncomplicated Status: Acute (2) Alcohol dependence: Status: Acute Plan This is a 34-year-old female with history of hypertension, alcohol dependence who presents to the emergency department with one-week history of abdominal pain, nausea, vomiting Abdominal pain with nausea and vomiting Possible alcoholic gastritis lipase normal, CT AP with no acute abnormalities symptomatic support, IV pepcid, IVF, antiemetics Alcohol dependence with alcohol withdrawal Started on phenobarbital protocol in the emergency room Follow CIWA Supplementation with thiamine, folic acid check lytes Thrombocytopenia Likely due to alcohol use Follow CBC Transaminitis Likely due to alcohol use CT scan consistent with hepatic steatosis. Patient self reports history of cirrhosis LFTs beginning to trend down HTN resume propranolol, clonidine anxiety continue prn hydroxyzine ?asthma, unspecified continue baseline inhalers no acute exacerbation DVT prophylaxis-mechanical devices, no chemoprophylaxis due to thrombocytopnea Code status-full code Patient will likely require 2 midnight stay in the hospital for management of alcohol withdrawal requiring close monitoring as well as intractable nausea and vomiting Quality Stroke Does the patient have a stroke diagnosis?: No VTE Prior VTE?: No VTE Risk Level:: Medical - moderate - high VTE Device Contraindication: N/A - Device Ordered VTE Drug Contraindication: N/A - Med Ordered
[2024-09-15 11:05] LABS: Hematocrit 37.9 % (37.0-47.0); Hemoglobin 13.7 g/dl (12.0-16.0); Mean Corpuscular HGB Conc 36.1 g/dl (31.0-35.0); Mean Corpuscular Hemoglobin 34.2 pg (27.0-33.0); Mean Corpuscular Volume 94.5 fL (80.0-98.0); NRBC Abs Auto 0.000 X10*3/uL (0.0-0.012); NRBC Pct Auto 0.0 /100WBC (0.0-0.2); Red Blood Count 4.01 X10*6/uL (4.20-5.50); White Blood Count 4.3 X10*3/uL (4.8-10.8)
[2024-09-15 11:08] LABS: Alanine Aminotransferase 36 U/L (0-31); Albumin Level 3.7 g/dL (3.5-5.0); Alkaline Phosphatase 77 U/L (39-117); Anion Gap 17 (12-20); Aspartate Amino Transferase 79 U/L (5-31); Blood Urea Nitrogen < 3 mg/dL (9-16); Calcium 7.7 mg/dL (8.4-10.2); Carbon Dioxide 25 mmol/L (22-29); Chloride 98 mmol/L (96-108); Creatinine Clr Calc Pharmacy 102.6; Estimated Glomerular Filt Rate > 60; Magnesium 1.5 mg/dL (1.6-2.6); Potassium 4.0 mmol/L (3.3-5.1); Sodium 136 mmol/L (135-145); Total Protein 6.5 g/dL (6.5-8.0)
[2024-09-15 11:16] LABS: Platelet Count 92 X10*3/uL (160-400)
--- NOTE | 2024-09-15 11:20 | PHA.MEDREC ---
Addendum entered by Harish Verduzco, PharmD 09/15/24 11:35: reviewed Original Note: Pharmacy Consult ? Medication Reconciliation Pharmacy has completed the medication reconciliation. Spoke with pt and she confirmed her medications. Per pt; she never started the Prednisone regimen nor does she think she started the Amlodipine since it was picked up the same day and pt has been too sick to really take anything she stated; spoke with pt father over the phone to confirm pt was never able to start these, she still takes Advair 2 puffs BID and Clonidine 0.1mg 1 TID; claims shows Advair LF 07/10/2024 and Clonidine LF 07/02/2024 and spoke with pt pharmacy ([facility]), they confirmed pt last got Advair / for 30 days and Clonidine / for 30 days.
--- NOTE | 2024-09-15 11:37 | PC.NURSE ---
Patient is a 34-year-old female with a history of alcohol dependence, anxiety and depression who presents to the emergency department with complaints of abdominal pain, nausea, vomiting and concerns over alcohol withdrawal. On arrival to the emergency department her alcohol level was 427. Lab work showing platelet level 137, mild transaminitis. Patient reports generalized abdominal pain with associated nausea and vomiting. She reports decreased oral intake over the past week. She has been drinking 12 ?tall boys? of beer daily she denies any hard alcohol use. CT scan of the abdomen and pelvis was unremarkable with the exception of hepatic steatosis. She was started on phenobarbital protocol. Patient alert and oriented. residential monitor maintained and NSR noted. Lungs clear bilat. Respirations even and non-labored. Abdomen soft with positive bowel sounds. c/o generalized abdominal pain. No N/V noted at this time. Positive pedal pulses with no edema.
[2024-09-15] MEDS: Fluticasone/Vilanterol 100/25 BLST.W.DEV 1 PUFF INHALE (13:16)
[2024-09-16] VITALS (9 sets, daily range): BP systolic 93–144; BP diastolic 59–117; PULSE 64–98; RESP 14–18; TEMP -17.7–37; O2SAT 93–98
--- NOTE | 2024-09-16 01:14 | PC.NURSE ---
pt requested a new gown d/t sweating, given clean blankets, wipes to wash and a new gown. pt feels better, resting at this time. CIWA 4. nausea, mild tremors, mild sweating and anxiety. pt medicated per MAR for pain, anxiety and sleep.
[2024-09-16 06:12] LABS: MANUAL DIFF FLAG NO
[2024-09-16 06:13] LABS: Hematocrit 38.4 % (37.0-47.0); Hemoglobin 13.3 g/dl (12.0-16.0); Imm Gran Abs Auto 0.01 X10*3/uL (0.00-0.03); Imm Gran Pct Auto 0.3 % (0.0-0.4); Lymphocytes Absolute Auto 1.8 X10*3/uL (1.2-4.9); Mean Corpuscular HGB Conc 34.6 g/dl (31.0-35.0); Mean Corpuscular Hemoglobin 33.8 pg (27.0-33.0); Mean Corpuscular Volume 97.7 fL (80.0-98.0); NRBC Abs Auto 0.000 X10*3/uL (0.0-0.012); NRBC Pct Auto 0.0 /100WBC (0.0-0.2); Red Blood Count 3.93 X10*6/uL (4.20-5.50); White Blood Count 4.0 X10*3/uL (4.8-10.8)
[2024-09-16 06:14] LABS: Platelet Count 81 X10*3/uL (160-400)
--- NOTE | 2024-09-16 06:32 | PC.NURSE ---
pt resting comfortably for a good stretch of the night, pt medicated per MAR for pain and nausea. tolerating PO well, will attempt to eat breakfast today
[2024-09-16 06:55] LABS: Alanine Aminotransferase 32 U/L (0-31); Albumin Level 3.0 g/dL (3.5-5.0); Alkaline Phosphatase 64 U/L (39-117); Anion Gap 14 (12-20); Aspartate Amino Transferase 70 U/L (5-31); Blood Urea Nitrogen < 3 mg/dL (9-16); Calcium 7.6 mg/dL (8.4-10.2); Carbon Dioxide 27 mmol/L (22-29); Chloride 98 mmol/L (96-108); Creatinine Clr Calc Pharmacy 97.2; Estimated Glomerular Filt Rate > 60; Magnesium 1.4 mg/dL (1.6-2.6); Potassium 3.3 mmol/L (3.3-5.1); Sodium 136 mmol/L (135-145); Total Protein 5.4 g/dL (6.5-8.0)
[2024-09-16] MEDS: Fluticasone/Vilanterol 100/25 BLST.W.DEV 1 PUFF INHALE (07:27)
[2024-09-16] MEDS: Magnesium Sulfate/H2O 2 GM/50 ML PIGGYBACK IV (07:37)
--- NOTE | 2024-09-16 09:16 | PC.NURSE ---
pharmacy contacted to request propanolol, awaiting med.
[2024-09-16] MEDS: Propranolol HCL LA 80 MG CAP.SA.24H PO (11:31)
--- NOTE | 2024-09-16 14:49 | PC.NURSE ---
Pt is becoming anxious, asking to leave. Provider aware and sts he will come down to talk to her.
--- NOTE | 2024-09-16 15:47 | P.DS_ITS ---
DS: Providers Provider Date of Service: 09/16/24 Date of admission: 09/15/24 10:21 Date of discharge: 09/16/24 Primary care physician: Unknown Physician DS: Diagnosis Discharge Diagnosis (1) Alcohol withdrawal: Status: Acute (2) Alcohol dependence: Status: Acute DS: Summary Hospital Course Hospital Course: 34-year-old female with a history of alcohol dependence who presents to the emergency department with complaints of abdominal pain, nausea, vomiting and concerns over alcohol withdrawal. On arrival to the emergency department her alcohol level was 427. Lab work showing platelet level 137, mild transaminitis. Patient reports generalized abdominal pain with associated nausea and vomiting. She denies diarrhea. She reports decreased oral intake over the past week. She has been drinking 12 ?tall boys? of beer daily she denies any hard alcohol use. CT scan of the abdomen and pelvis was unremarkable with the exception of hepatic steatosis. Lipase normal. She was started on phenobarbital protocol, received multiple doses of antiemetics but continued to report pain and nausea and vomiting and therefore will be admitted for further management. Hospital Course Patient admitted to telemetry where monitor failed to demonstrate any acute dysrhythmias. She was maintained on phenobarb protocol. She was given IV ppi. Over the course of the next 24 hours for CIWA was reduced to essentially 1-2. She remained a border in the ER overnight and this a.m. wish to sign out AMA. She was advised to abstain from alcohol and signed out AMA Time Attestation Discharge Coordination Time (in mins): 35 Quality: Safe Use of Opioids Does Pt have an Active Cancer Diagnosis on the Problem List?: No Quality: Stroke Does the patient have a stroke diagnosis?: No Physical Exam Vital Signs: Vital Signs: Last Vital Signs Temp 0 F L 09/16/24 15:44 Pulse 85 09/16/24 15:44 Resp 18 09/16/24 15:44 BP 144/117 H 09/16/24 15:44 Pulse Ox 96 09/16/24 15:44 O2 Del Method Room Air 09/16/24 15:44 BMI result Body Mass Index 18.2 Const: Other: Awake alert no acute distress Resp: Other: Clear to auscultation bilaterally no rales rhonchi or wheezes Cardio: Other: No S4; positive S1-S2; no S3 murmurs rubs or gallops GI: Other: Soft nontender nondistended normoactive bowel sounds Extrem: Other: No edema bilaterally DS: Data Data Completed and Pending Labs on day of discharge: Laboratory Results - last 24 hr 09/15/24 09/16/24 03:17 06:07 WBC 4.0 L RBC 3.93 L Hgb 13.3 Hct 38.4 MCV 97.7 MCH 33.8 H MCHC 34.6 RDW 13.2 Plt Count 81 L MPV 10.5 Immature Gran % (Auto) 0.3 Neut % (Auto) 33.6 L Lymph % (Auto) 46.2 H [place] % (Auto) 17.1 H Eos % (Auto) 2.0 Baso % (Auto) 0.8 Lymph # (Auto) 1.8 [place] # (Auto) 0.7 Eos # (Auto) 0.1 Baso # (Auto) 0.0 Abs Immat Gran (auto) 0.01 Absolute Neuts (auto) 1.3 L Absolute Nucleated RBC 0.000 Nucleated RBC % (auto) 0.0 Sodium 136 Potassium 3.3 Chloride 98 Carbon Dioxide 27 Anion Gap 14 BUN < 3 L Creatinine 0.58 Estim Creat Clear Calc 97.2 Estimated GFR > 60 Fasting Glucose 143 H Calcium 7.6 L Magnesium 1.4 L* Total Bilirubin 0.7 AST 70 H ALT 32 H Alkaline Phosphatase 64 Total Protein 5.4 L Albumin 3.0 L Prolactin 6.4 Discharge Plan Discharge Anticipated Discharge Date/Time: 09/16/24 15:46 Patient Disposition: Left Against Medical Advice Discharge Diagnosis: Acute alcohol withdrawal Referrals: Physician,Unknown J [Primary Care Provider, Medical] - 1 Week Discharge Medications: Continued propranolol 80 mg capsule,extended release 24 hr 80 mg PO DAILY omeprazole 20 mg capsule,delayed release(DR/EC) 20 mg PO DAILY@0630 clonidine HCl 0.1 mg tablet 0.1 mg PO TID trazodone 50 mg tablet 50 mg PO BEDTIME PRN (Reason: Sleep) albuterol sulfate [Ventolin HFA] 90 mcg/actuation HFA aerosol inhaler 2 puff inhalation Q4H PRN (Reason: wheezing) hydroxyzine pamoate 25 mg capsule 50 mg PO TID PRN (Reason: anxiety) fluticasone propion-salmeterol [Advair HFA] 115-21 mcg/actuation HFA aerosol inhaler 2 puff INHALATION BID Discharge Orders: Discharge Order (Routine); Ordered 09/16/24 Ordered By: Flako Kraus Diet: Advance to usual diet Activity on Discharge: As tolerated Stand Alone Forms: Against Medical Advice Print Language: Icelandic Care Plan Goals: AMA Health Concerns: AMA Plan of Treatment: AMA Assessment: AMA
== END 2024-09-16 16:09 | disposition left against medical advice (07) | DRG 770 ==
LOC: HO.ED 10:28 → HO.EDOVER 10:59 → HO.IMC 09-16 16:05
PROVIDERS: Emergency Medicine; Physician Assistant; Admitting Provider Physician Assistant Medical; Emergency Provider Emergency Medicine Emergency Medical Services; Visit Provider Hospitalist
DX: F10.239 Alcohol dependence with withdrawal, unspecified (principal); D69.59 Other secondary thrombocytopenia; F17.210 Nicotine dependence, cigarettes, uncomplicated; Y90.8 Blood alcohol level of 240 mg/100 ml or more; Z71.6 Tobacco abuse counseling; I10 Essential (primary) hypertension; F41.9 Anxiety disorder, unspecified; J45.909 Unspecified asthma, uncomplicated; Z79.51 Long term (current) use of inhaled steroids; Z79.899 Other long term (current) drug therapy
CPT/HCPCS: 36415; 70450; 74177; 80048; 80053; 80076; 80307; 81001; 82550; 82803; 83690; 83735; 84146; 84702; 85025; 85027; 87086; 93005; 99285; J1200; J1308; J1885; J2270; J2405; J2470; J2560; J2765; J3360; J3475; J7120; Q9967

== ENCOUNTER → 2024-09-15 00:59 | Outpatient (BNV) | payer MEDICAID, SELFPAY | PROVIDERS: Admitting Provider Physician Assistant Medical; Emergency Provider Emergency Medicine Emergency Medical Services; Visit Provider Internal Medicine | DX: R00.0 Tachycardia, unspecified (principal) | CPT/HCPCS: 93010 ==

== ENCOUNTER → 2024-09-15 01:53 | Outpatient (BNV) | payer MEDICAID, SELFPAY | PROVIDERS: Emergency Provider Emergency Medicine; Visit Provider Student in an Organized Health Care Education/Training Program | DX: K76.0 Fatty (change of) liver, not elsewhere classified (principal); R55 Syncope and collapse | CPT/HCPCS: 70450; 74177 ==

== ENCOUNTER → 2024-09-15 10:21 | Outpatient (BNV) | payer MEDICAID, SELFPAY | PROVIDERS: Admitting Provider Physician Assistant Medical; Emergency Provider Emergency Medicine Emergency Medical Services; Visit Provider Physician Assistant Medical | DX: F10.930 Alcohol use, unspecified with withdrawal, uncomplicated (principal); F10.20 Alcohol dependence, uncomplicated | CPT/HCPCS: 99223; 99239 ==